=== PATIENT | female | born 1970 | race American Indian/Alaskan Native ===

== ENCOUNTER 2017-05-06 10:51 | Emergency (ER) | payer OTHER ==
--- NOTE | 2017-05-06 11:11 | Emergency Department Report ---
Chief Complaint: Chest Pain Stated Complaint: C/P STOMACH PAIN Time Seen by Provider: 05/06/17 11:11 - HPI History of Present Illness: Patient here reports that she is having mid to left chest pain and lower abdominal pain that started last week. She says she's been having low-grade fever with nausea and loss of appetite. Patient has a history of tubal ligation. She said her pain is crampy. Patient says she has a similar chest pain last weekend she was seen here last year and she does not have any heart problem. Patient denies having any medical problem except for surgical history of and fibroid removal along with bilateral tubal ligation. Her last period she said was last week which was 05/13/2017. Pain is 10 out of 10. She says she took some Tylenol but it didn't help. Denies any vaginal bleeding or discharge. She reports upper back pain without any injury. Patient denies any history of blood clot personally or in her family, she denies any history of control pills, denies any recent long distance travel by plane or car. Denies any swelling to her legs. - ROS Review of Systems: All systems are negative unless stated in HPI above - Exam Vital Signs: Vital Signs 05/06/17 11:04 Temperature 98.5 F Pulse Rate 111 H Respiratory 18 Rate Blood Pressure 143/87 O2 Sat by Pulse 99 Oximetry Physical Exam: This is a 46-year-old female that appears ill but nontoxic in appearance. Abdomen: Mild tenderness to palpate the lower abdominal quadrants, no guarding no rebound tenderness. Normal bowel sounds. Cardiovascular: Tachycardic at 111, regular rhythm. S1 and S2. Lungs: Clear to auscultation bilaterally, no rhonchi wheezes or rales MSE screening note: Focused history and physical exam performed. Due to findings the following was ordered:MDM screening ED Medical Decision Making - Medical Decision Making MDM: Patient screened by provider in triage area. Appropriate protocol initiated and patient to be seen in main ED by ED Disposition for MSE Condition: Stable
[2017-05-06 11:50] LABS: Basophils % (Auto) 0.8 % (0.0-1.8); Eosinophils % (Auto) 1.4 % (0.0-4.3); Hematocrit 41.9 % (30.3-42.9); Mean Corpuscular HGB Conc 33 % (30-34); Mean Corpuscular Hemoglobin 34 pg (28-32); Mean Corpuscular Volume 103 fl (79-97); Platelet Count 235 K/mm3 (140-440); Red Blood Count 4.09 M/mm3 (3.65-5.03); Red Cell Distribution Width 14.9 % (13.2-15.2); White Blood Count 4.9 K/mm3 (4.5-11.0)
[2017-05-06 12:00] LABS: INR 0.99 (0.87-1.13)
[2017-05-06 12:01] LABS: Partial Thromboplastin Time 26.7 Sec. (24.2-36.6)
[2017-05-06 12:27] LABS: Bilirubin,Urine NEG (Negative); Blood,Urine MOD (Negative); Ketones,Urine NEG (Negative); Leukocyte Esterase,Urine NEG (Negative); Mucus,Urine FEW /HPF; Nitrite,Urine NEG (Negative); Protein,Urine <15 mg/dL mg/dL (Negative); Urobilinogen,Urine < 2.0 mg/dL (<2.0)
[2017-05-06 12:48] LABS: Alanine Aminotransferase 19 units/L (7-56); Albumin 4.5 g/dL (3.9-5); Albumin/Globulin Ratio 1.3 %; Alkaline Phosphatase 53 units/L (35-129); Anion Gap 17 mmol/L; BUN/Creatinine Ratio 9; Blood Urea Nitrogen 7 mg/dL (7-17); Calcium 9.6 mg/dL (8.4-10.2); Carbon Dioxide 26 mmol/L (22-30); Chloride 101.1 mmol/L (98-107); Glucose 100 mg/dL (65-100); Lipase 19 units/L (13-60); Potassium 3.9 mmol/L (3.6-5.0); Sodium 140 mmol/L (137-145); Total Protein 7.9 g/dL (6.3-8.2)
[2017-05-06] MEDS ORDERED: REGLAN IV ONE (17:49)
[2017-05-06] MEDS ORDERED: NACL 0.9% 1000 ML 1,000 ML IV ONE (17:49)
--- NOTE | 2017-05-06 17:53 | Emergency Department Report ---
ED Abdominal Pain HPI - General Chief Complaint: Chest Pain Stated Complaint: C/P STOMACH PAIN Time Seen by Provider: 05/06/17 11:11 Source: patient Mode of arrival: Ambulatory Limitations: No Limitations - History of Present Illness Initial Comments: Patient is 46 years old female with no significant past medical history, she came today with a chief complaint ABDOMINAL PAIN NAUSEA VOMITING for the last 5 days, patient stated that she is not able to keep anything down. She denied diarrhea. No fever no other complaints. MD Complaint: abdominal pain -: days(s) Location: epigastric Migration to: no migration Severity scale (0 -10): 4 Quality: stabbing Consistency: intermittent Associated Symptoms: nausea, vomiting. denies: diarrhea, fever, chills, constipation - Related Data Home Medications Medication Instructions Recorded Confirmed Last Taken No Known Home Medications [No 05/06/17 05/06/17 Unknown Reported Home Medications] Allergies Allergy/AdvReac Type Severity Reaction Status Date / Time No Known Allergies Allergy Unverified 10/04/14 11:17 ED Review of Systems ROS: Stated complaint: C/P STOMACH PAIN Other details as noted in HPI Comment: All other systems reviewed and negative Constitutional: denies: chills, fever Respiratory: denies: cough, orthopnea, shortness of breath, SOB with exertion Cardiovascular: chest pain. denies: palpitations, dyspnea on exertion Gastrointestinal: abdominal pain, nausea, vomiting. denies: diarrhea, constipation, hematemesis Musculoskeletal: denies: back pain, joint swelling Neurological: denies: headache, weakness, numbness ED Past Medical Hx - Past Medical History Previous Medical History?: No - Surgical History Additional Surgical History: , fibroid removal - Social History Smoking Status: Never Smoker Substance Use Type: None - Medications Home Medications: Home Medications Medication Instructions Recorded Confirmed Last Taken Type No Known Home Medications [No 05/06/17 05/06/17 Unknown History Reported Home Medications] ED Physical Exam - General Limitations: No Limitations General appearance: alert - Head Head exam: Present: atraumatic, normocephalic - Eye Eye exam: Present: normal appearance Pupils: Present: normal accommodation - ENT ENT exam: Present: normal exam, normal orophraynx, TM's normal bilaterally - Neck Neck exam: Present: normal inspection - Respiratory Respiratory exam: Present: normal lung sounds bilaterally. Absent: respiratory distress, wheezes, rales, rhonchi, chest wall tenderness - Cardiovascular Cardiovascular Exam: Present: regular rate, normal rhythm, normal heart sounds - GI/Abdominal GI/Abdominal exam: Present: soft, normal bowel sounds. Absent: distended, guarding, rebound, rigid, mass, bruit, pulsatile mass, hernia - Extremities Exam Extremities exam: Present: normal inspection, full ROM, normal capillary refill. Absent: tenderness - Back Exam Back exam: Present: normal inspection. Absent: CVA tenderness (R), CVA tenderness (L) - Neurological Exam Neurological exam: Present: alert, oriented X3, CN II-XII intact, normal gait - Skin Skin exam: Present: warm, dry, normal color ED Course Vital Signs 05/06/17 05/06/17 05/06/17 11:04 15:09 16:04 Temperature 98.5 F 98.1 F Pulse Rate 111 H 94 H Respiratory 18 18 Rate Blood Pressure 143/87 Blood Pressure 139/81 [Right] O2 Sat by Pulse 99 100 97 Oximetry 05/06/17 05/06/17 05/06/17 16:15 16:31 17:00 Temperature Pulse Rate 84 76 Respiratory 17 14 Rate Blood Pressure 146/81 123/75 Blood Pressure [Right] O2 Sat by Pulse 99 100 99 Oximetry 05/06/17 18:00 Temperature Pulse Rate 83 Respiratory 13 Rate Blood Pressure 146/81 Blood Pressure [Right] O2 Sat by Pulse 98 Oximetry - Reevaluation(s) Reevaluation #1: 05/06/17 19:45 Patient stated that she is feeling much better her pain is almost resolved, no more vomiting. ED Medical Decision Making - Lab Data Result diagrams: 05/06/17 11:37 05/06/17 11:37 - Radiology Data Radiology results: image reviewed interpreted by me: Abdominal x-ray with chest x-ray, no acute finding, no evidence of bowel obstruction. Critical care attestation.: If time is entered above; I have spent that time in minutes in the direct care of this critically ill patient, excluding procedure time. ED Disposition Clinical Impression: Abdominal pain, Gastritis Disposition: DC-01 TO HOME OR SELFCARE Is pt being admited?: No Condition: Stable Instructions: Abdominal Pain (ED), Gastritis (ED) Referrals: PRIMARY CARE, [Primary Care Provider] - 3-5 Days
[2017-05-06] MEDS ORDERED: PROTONIX IV ONE (18:00)
[2017-05-06] MEDS ORDERED: TORADOL IV ONE (19:44)
[2017-05-06 20:11] VITALS: BP 112/72
--- NOTE | 2017-05-07 07:32 | XRay Report ---
Abdominal series: History: Abdominal pain. Findings: Normal cardiomediastinal silhouette normal lung parenchyma. No free intraperitoneal air. No bowel distention or wall thickening. No radiopaque calculus. There is calcific mass identified in the pelvis adjacent to the right ischial spine measuring 3.7 cm in diameter. Impression: No acute lung changes. No bowel distention. Calcified mass could be retained or outside the pelvis. If clinically indicated CT scan of pelvis may be recommended. No previous studies available for comparison.
== END 2017-05-06 20:10 | disposition home or self-care (01) ==
LOC: ED 10:51
DX: K29.70 Gastritis, unspecified, without bleeding (principal)
CPT/HCPCS: 36415; 74022; 80053; 81001; 83690; 84484; 84703; 85025; 85610; 85730; 93005; 93010; 96361; 96374; 96375; 99284; C9113; J1885; J2765; J7030

== ENCOUNTER 2021-06-07 18:36 | Emergency (ER) | payer SELFPAY ==
[2021-06-07 19:25] VITALS: BP 136/82
--- NOTE | 2021-06-07 23:28 | Cat Scan Report ---
CT HEAD WITHOUT CONTRAST INDICATION / CLINICAL INFORMATION: Headache. TECHNIQUE: All CT scans at this location are performed using CT dose reduction for ALARA by means of automated exposure control. COMPARISON: None available. FINDINGS: BRAIN PARENCHYMA: No acute intracranial hemorrhage. No evidence of recent infarct. No mass effect or midline shift. VENTRICULAR SYSTEM/EXTRA-AXIAL SPACES: Ventricles are normal for age. No extra-axial fluid collection . ORBITS: Normal as visualized. SKELETAL SYSTEM/SOFT TISSUES: Normal bones and soft tissues. PARANASAL SINUSES/MASTOID AIR CELLS: No significant abnormality. ADDITIONAL FINDINGS: None. IMPRESSION: 1. No acute intracranial abnormality. Signer Name: Micky Valles MD Signed: 06/07/2021 11:24 PM Workstation Name: [id number]
--- NOTE | 2021-06-08 | Emergency Department Report ---
ED Headache HPI - General Chief Complaint: Headache Stated Complaint: HAND IS SHAKING Time Seen by Provider: 06/07/21 21:36 - History of Present Illness Initial Comments: 50-year-old -[place] female with past medical history hypertension presents [facility] complaining of headache for the last 4 days associated with numbness and tingling to her hand off and on over the the last few hours today was prompted to come to [facility] department she reports no loss of vision but has experienced some dizziness and humming to the 80s. No nausea, no vomiting, no hemoptysis hematemesis hematochezia no neck stiffness no rashes no traumatic events to her knowledge Head Injury Location: frontal, occipital Recent Head Trauma: no recent headache/trauma Associated Symptoms: denies: facial pain, fever/chills, nausea/vomiting, nasal congestion, sinus infection, vision changes Allergies/Adverse Reactions: Allergies No Known Allergies Allergy (Verified 05/14/18 16:58) Home Medications: Ambulatory Orders Esomeprazole Magnesium [NexIUM] 40 mg PO QDAY #30 capsule. 05/06/17 Acyclovir [Zovirax] 400 mg PO 5XD 7 Days tablet 05/12/18 Famotidine [Pepcid] 20 mg PO BID #20 tablet 05/12/18 Ibuprofen [Motrin] 800 mg PO Q8HR PRN #30 tablet 05/12/18 Mineral Oil/Petrolatum,White [Lubrifresh Pm Eye Ointment] 1 strip OD QHS #1 bottle 05/12/18 Ondansetron [Zofran ODT TAB] 4 mg PO Q8HR PRN #20 tab.rapdis 05/12/18 Prednisone [predniSONE 10 mg (6-Day Pack, 21 Tabs)] 10 mg PO .TAPER #1 tab.ds.pk 05/12/18 traMADoL [Ultram 50 MG tab] 50 mg PO Q6HR PRN #20 tablet 05/12/18 Polyvinyl Alcohol/Povidone [Artificial Tears Drops 0.5/0.6 %] 1 - 2 drop OP PRN #1 bottle 05/14/18 Albuterol Mdi (or & Nicu Only) [ProAir HFA Inhaler] 1 puff IH Q4-6H PRN #1 inha 05/31/18 Azithromycin [Zithromax] 500 mg PO QDAY #5 tablet 05/31/18 guaiFENesin/CODEINE [Robitussin AC] 5 ml PO Q6H PRN #120 ml 05/31/18 Mag Carb/Aluminum Hydrox/Algin [Gaviscon Extra Strength Liquid] 355 ml PO ONCE #1 oral.susp 06/01/18 Ketorolac [Toradol] 10 mg PO Q6H PRN #10 tablet 06/08/21 ED Review of Systems ROS: Stated complaint: HAND IS SHAKING Other details as noted in HPI Comment: All other systems reviewed and negative ED Past Medical Hx - Past Medical History Previous Medical History?: Yes Additional medical history: jean baptiste's palsy hx - Surgical History Past Surgical History?: Yes Additional Surgical History: , fibroid removal - Social History Smoking Status: Never Smoker Substance Use Type: None - Medications Home Medications: Home Medications Medication Instructions Recorded Confirmed Last Taken Type Esomeprazole Magnesium [NexIUM] 40 mg PO QDAY #30 capsule. 05/06/17 Unknown Rx Acyclovir [Zovirax] 400 mg PO 5XD 7 Days tablet 05/12/18 Unknown Rx Famotidine [Pepcid] 20 mg PO BID #20 tablet 05/12/18 Unknown Rx Ibuprofen [Motrin] 800 mg PO Q8HR PRN #30 tablet 05/12/18 Unknown Rx Mineral Oil/Petrolatum,White 1 strip OD QHS #1 bottle 05/12/18 Unknown Rx [Lubrifresh Pm Eye Ointment] Ondansetron [Zofran ODT TAB] 4 mg PO Q8HR PRN #20 tab.rapdis 05/12/18 Unknown Rx Prednisone [predniSONE 10 mg 10 mg PO .TAPER #1 tab.ds.pk 05/12/18 Unknown Rx (6-Day Pack, 21 Tabs)] traMADoL [Ultram 50 MG tab] 50 mg PO Q6HR PRN #20 tablet 05/12/18 Unknown Rx Polyvinyl Alcohol/Povidone 1 - 2 drop OP PRN #1 bottle 05/14/18 Unknown Rx [Artificial Tears Drops 0.5/0.6 %] Albuterol Mdi (or & Nicu Only) 1 puff IH Q4-6H PRN #1 inha 05/31/18 Unknown Rx [ProAir HFA Inhaler] Azithromycin [Zithromax] 500 mg PO QDAY #5 tablet 05/31/18 Unknown Rx guaiFENesin/CODEINE [Robitussin AC] 5 ml PO Q6H PRN #120 ml 05/31/18 Unknown Rx Mag Carb/Aluminum Hydrox/Algin 355 ml PO ONCE #1 oral.susp 06/01/18 Unknown Rx [Gaviscon Extra Strength Liquid] Ketorolac [Toradol] 10 mg PO Q6H PRN #10 tablet 06/08/21 Unknown Rx ED Physical Exam - General Limitations: No Limitations General appearance: alert, in no apparent distress - Head Head exam: Present: atraumatic, normocephalic, normal inspection - Eye Eye exam: Present: normal appearance, PERRL Pupils: Present: normal accommodation - ENT ENT exam: Present: mucous membranes moist - Neck Neck exam: Present: normal inspection - Respiratory Respiratory exam: Present: normal lung sounds bilaterally. Absent: respiratory distress, wheezes, rales, rhonchi, accessory muscle use - Cardiovascular Cardiovascular Exam: Present: regular rate, normal rhythm. Absent: systolic murmur, diastolic murmur, rubs, gallop - GI/Abdominal GI/Abdominal exam: Present: soft, normal bowel sounds - Extremities Exam Extremities exam: Present: normal inspection, normal capillary refill - Back Exam Back exam: Present: normal inspection. Absent: CVA tenderness (R), CVA tenderness (L) - Neurological Exam Neurological exam: Present: alert, oriented X3, CN II-XII intact, normal gait - Psychiatric Psychiatric exam: Present: normal affect, normal mood - Skin Skin exam: Present: warm, dry, intact, normal color. Absent: rash, diaphoretic, erythema, petechiae, pallor ED Course Vital Signs 06/07/21 19:25 Temperature 97.6 F Pulse Rate 104 H Respiratory 18 Rate Blood Pressure 136/82 O2 Sat by Pulse 100 Oximetry ED Medical Decision Making - Radiology Data Radiology results: report reviewed [facility] [address] [place] [address] Cat Scan Report Signed Patient: JEREMY AUGUSTE MR#: [id number] : 1970 Acct:[id number] Age/Sex: 50 / F ADM Date: 06/07/21 Loc: ED Attending Dr: Ordering Physician: DAMARIS LYNN Date of Service: 06/07/21 Procedure(s): CT head/brain wo con Accession Number(s): [id number] cc: DAMARIS LYNN CT HEAD WITHOUT CONTRAST INDICATION / CLINICAL INFORMATION: Headache. TECHNIQUE: All CT scans at this location are performed using CT dose reduction for ALARA by means of automated exposure control. COMPARISON: None available. FINDINGS: BRAIN PARENCHYMA: No acute intracranial hemorrhage. No evidence of recent infarct. No mass effect or midline shift. VENTRICULAR SYSTEM/EXTRA-AXIAL SPACES: Ventricles are normal for age. No extra- axial fluid collection. ORBITS: Normal as visualized. SKELETAL SYSTEM/SOFT TISSUES: Normal bones and soft tissues. PARANASAL SINUSES/MASTOID AIR CELLS: No significant abnormality. ADDITIONAL FINDINGS: None. IMPRESSION: 1. No acute intracranial abnormality. Signer Name: Giuliano Valles MD Signed: 06/07/2021 11:24 PM Workstation Name: [id number] Transcribed By: VERONICA Dictated By: GIULIANO VALLES MD Electronically Authenticated By: GIULIANO VALLES MD Signed Date/Time: 06/07/212323 DD/ 22 TD/TT: - Medical Decision Making This patient presents with a headache most consistent with nonemergent cause. Differential diagnosis includes migraine versus tension type headache. No hea dache red flags. Neurologic exam without evidence of meningismus, focal neurologic findings.Based on the patient's history and physical there is very low clinical suspicion for significant intracranial pathology. The headache was NOT sudden onset, NOT maximal at onset, there are NO neurologic findings, the patient does NOT have a fever, the patient does NOT have any jaw claudication, the patient does NOT endorse a clotting disorder, patient DENIES any trauma or eye pain and the headache is NOT associated with dizziness or ataxia. Presentation not consistent with acute intracranial bleed to include SAH (lack of risk factors, headache history). Presentation not consistent with acute [employer] infection to include meningitis or brain abscess, Temporal arteritis unlikely, as is acute angle closure glaucoma given history and physical findings. Presentation not consistent with other acute, emergent causes of headache at this time. Plan to treat symptomatically with pain medication. No indication for imaging/LP at this time. Plan: pain medication, CT brain, serial reassessment Critical care attestation.: If time is entered above; I have spent that time in minutes in the direct care of this critically ill patient, excluding procedure time. ED Disposition Clinical Impression: Headache Disposition: 01 HOME / SELF CARE / HOMELESS Is pt being admited?: No Does the pt Need Aspirin: No Condition: Stable Instructions: General Headache Without Cause, Form - Headache Record, Acetaminophen; Aspirin, ASA; Caffeine oral powder Prescriptions: Ketorolac [Toradol] 10 mg PO Q6H PRN #10 tablet PRN Reason: Pain Referrals: CRYSTAL PEREZ MD [Primary Care Provider] - 3-5 Days
== END 2021-06-08 00:30 | disposition home or self-care (01) ==
LOC: ED 18:36
DX: R51.9 Headache, unspecified (principal); G51.0 Bell's palsy
CPT/HCPCS: 70450; 99283

== ENCOUNTER 2021-10-20 09:19 | Emergency (ER) | payer SELFPAY ==
[2021-10-20] MEDS ORDERED: KETOROLAC 10 MG TAB PO ONE (11:37)
[2021-10-20] MEDS ORDERED: DEXAMETHASONE 4 MG TAB PO ONE (11:37)
--- NOTE | 2021-10-20 12:40 | Emergency Department Report ---
ED Dizziness HPI - General Chief Complaint: Dizziness Stated Complaint: WEAKNESS Time Seen by Provider: 10/20/21 11:36 Source: EMS Mode of arrival: Stretcher Limitations: No Limitations - History of Present Illness Initial Comments: 51-year-old black female with a past medical history of hypertension presents to the ER for evaluation of dizziness. She states that she woke up this morning with dizziness that was worse with standing along with headache and runny nose. She denies shortness of breath, chest pain, nausea, vomiting, and cough. He states that headache is 9 out of 10. MD Complaint: dizziness -: Sudden, This morning Timing: sudden onset Description: off-balance History of Same: No History of Trauma: No Severity: moderate Worsens With: other (Standing) Associated Symptoms: denies: ataxia, chest pain, confusion, cough, diaphoresis, fever/chills, loss of appetite, malaise, rash, seizure, shortness of breath, syncope, weakness - Related Data Previous Rx's Medication Instructions Recorded Last Taken Type Esomeprazole Magnesium [NexIUM] 40 mg PO QDAY #30 capsule. 05/06/17 Unknown Rx Acyclovir [Zovirax] 400 mg PO 5XD 7 Days tablet 05/12/18 Unknown Rx Famotidine [Pepcid] 20 mg PO BID #20 tablet 05/12/18 Unknown Rx Ibuprofen [Motrin] 800 mg PO Q8HR PRN #30 tablet 05/12/18 Unknown Rx Mineral Oil/Petrolatum,White 1 strip OD QHS #1 bottle 05/12/18 Unknown Rx [Lubrifresh Pm Eye Ointment] Ondansetron [Zofran ODT TAB] 4 mg PO Q8HR PRN #20 tab.rapdis 05/12/18 Unknown Rx Prednisone [predniSONE 10 mg 10 mg PO .TAPER #1 tab.ds.pk 05/12/18 Unknown Rx (6-Day Pack, 21 Tabs)] traMADoL [Ultram 50 MG tab] 50 mg PO Q6HR PRN #20 tablet 05/12/18 Unknown Rx Polyvinyl Alcohol/Povidone 1 - 2 drop OP PRN #1 bottle 05/14/18 Unknown Rx [Artificial Tears Drops 0.5/0.6 %] Albuterol Mdi (or & Nicu Only) 1 puff IH Q4-6H PRN #1 inha 05/31/18 Unknown Rx [ProAir HFA Inhaler] Azithromycin [Zithromax] 500 mg PO QDAY #5 tablet 05/31/18 Unknown Rx guaiFENesin/CODEINE [Robitussin AC] 5 ml PO Q6H PRN #120 ml 05/31/18 Unknown Rx Mag Carb/Aluminum Hydrox/Algin 355 ml PO ONCE #1 oral.susp 06/01/18 Unknown Rx [Gaviscon Extra Strength Liquid] Ketorolac [Toradol] 10 mg PO Q6H PRN #10 tablet 06/08/21 Unknown Rx Levocetirizine Dihydrochloride 5 mg PO QPM #30 tab 10/20/21 Unknown Rx [Xyzal] methylPREDNISolone [Medrol 4MG 4 mg PO DAILY #1 pack 10/20/21 Unknown Rx DOSEPAK (21 tabs)] Allergies Allergy/AdvReac Type Severity Reaction Status Date / Time No Known Allergies Allergy Verified 05/14/18 16:58 ED Review of Systems ROS: Stated complaint: WEAKNESS Other details as noted in HPI Comment: All other systems reviewed and negative Constitutional: denies: chills, diaphoresis, fever, malaise, weakness Eyes: denies: eye pain ENT: congestion Respiratory: denies: cough, shortness of breath, SOB with exertion, SOB at rest, wheezing Cardiovascular: denies: chest pain, palpitations, dyspnea on exertion, orthopnea Gastrointestinal: abdominal pain. denies: nausea, vomiting Genitourinary: denies: urgency, dysuria, frequency, hematuria Musculoskeletal: denies: back pain, joint swelling Skin: denies: rash, lesions Neurological: headache. denies: weakness, numbness, paresthesias, confusion, abnormal gait ED Past Medical Hx - Past Medical History Previous Medical History?: Yes Hx Hypertension: Yes Additional medical history: jean baptiste's palsy hx - Surgical History Additional Surgical History: , fibroid removal - Social History Smoking Status: Never Smoker Substance Use Type: None - Medications Home Medications: Home Medications Medication Instructions Recorded Confirmed Last Taken Type Esomeprazole Magnesium [NexIUM] 40 mg PO QDAY #30 capsule. 05/06/17 Unknown Rx Acyclovir [Zovirax] 400 mg PO 5XD 7 Days tablet 05/12/18 Unknown Rx Famotidine [Pepcid] 20 mg PO BID #20 tablet 05/12/18 Unknown Rx Ibuprofen [Motrin] 800 mg PO Q8HR PRN #30 tablet 05/12/18 Unknown Rx Mineral Oil/Petrolatum,White 1 strip OD QHS #1 bottle 05/12/18 Unknown Rx [Lubrifresh Pm Eye Ointment] Ondansetron [Zofran ODT TAB] 4 mg PO Q8HR PRN #20 tab.rapdis 05/12/18 Unknown Rx Prednisone [predniSONE 10 mg 10 mg PO .TAPER #1 tab.ds.pk 05/12/18 Unknown Rx (6-Day Pack, 21 Tabs)] traMADoL [Ultram 50 MG tab] 50 mg PO Q6HR PRN #20 tablet 05/12/18 Unknown Rx Polyvinyl Alcohol/Povidone 1 - 2 drop OP PRN #1 bottle 05/14/18 Unknown Rx [Artificial Tears Drops 0.5/0.6 %] Albuterol Mdi (or & Nicu Only) 1 puff IH Q4-6H PRN #1 inha 05/31/18 Unknown Rx [ProAir HFA Inhaler] Azithromycin [Zithromax] 500 mg PO QDAY #5 tablet 05/31/18 Unknown Rx guaiFENesin/CODEINE [Robitussin AC] 5 ml PO Q6H PRN #120 ml 05/31/18 Unknown Rx Mag Carb/Aluminum Hydrox/Algin 355 ml PO ONCE #1 oral.susp 06/01/18 Unknown Rx [Gaviscon Extra Strength Liquid] Ketorolac [Toradol] 10 mg PO Q6H PRN #10 tablet 06/08/21 Unknown Rx Levocetirizine Dihydrochloride 5 mg PO QPM #30 tab 10/20/21 Unknown Rx [Xyzal] methylPREDNISolone [Medrol 4MG 4 mg PO DAILY #1 pack 10/20/21 Unknown Rx DOSEPAK (21 tabs)] ED Physical Exam - General Limitations: No Limitations General appearance: alert, in no apparent distress - Head Head exam: Present: atraumatic, normocephalic - Eye Eye exam: Present: normal appearance. Absent: conjunctival injection - ENT ENT exam: Absent: normal exam (Bilateral nasal mucosal edema and bilateral turbinate swelling), normal orophraynx (Erythema to posterior oropharynx) - Expanded ENT Exam Expanded Mouth exam: Present: normal external inspection Throat exam: Negative: normal inspection, tonsillar erythema, tonsillomegaly, tonsillar exudate, R peritonsillar mass, L peritonsillar mass - Neck Neck exam: Present: normal inspection. Absent: lymphadenopathy - Respiratory Respiratory exam: Present: normal lung sounds bilaterally. Absent: respiratory distress, wheezes, rales, rhonchi, stridor, chest wall tenderness - Cardiovascular Cardiovascular Exam: Present: regular rate, normal heart sounds - GI/Abdominal GI/Abdominal exam: Present: soft, normal bowel sounds. Absent: distended, tenderness, guarding, rebound, rigid - Extremities Exam Extremities exam: Present: normal inspection, normal capillary refill. Absent: tenderness, pedal edema, joint swelling, calf tenderness - Back Exam Back exam: Present: normal inspection. Absent: CVA tenderness (R), CVA tenderness (L), vertebral tenderness - Neurological Exam Neurological exam: Present: alert, oriented X3, normal gait - Expanded Neurological Exam Expanded Patient oriented to: Present: person, place, time Speech: Present: fluid speech Cranial nerves: EOM's Intact: Normal, Gag Reflex: Normal, Tongue Deviation: Normal, Nystagmus: Normal, Facial Sensation: Normal Ataxia: Absent: yes Cerebellar function: Finger to Nose: Normal, Heel to Huggins: Normal, Romberg: Normal Sensory exam: Upper Extremity Light Touch: Normal, Lower Extremity Light Touch: Normal Motor strength exam: RUE: 5, LUE: 5, RLE: 5, LLE: 5 Best Eye Response (Gracey): (4) open spontaneously Best Motor Response (Gracey): (6) obeys commands Best Verbal Response (Gracey): (5) oriented Hannah Total: 15 - Psychiatric Psychiatric exam: Present: normal affect, normal mood - Skin Skin exam: Present: warm, dry, intact, normal color ED Course Vital Signs 10/20/21 10/20/21 09:42 12:56 Temperature 98.0 F 98.8 F Pulse Rate 92 H 73 Respiratory 18 18 Rate Blood Pressure 118/65 124/89 [Right] O2 Sat by Pulse 99 99 Oximetry - Reevaluation(s) Reevaluation #1: 10/20/21 12:39 Headache and dizziness mostly resolved, and patient states that she feels much better. ED Medical Decision Making - Medical Decision Making 51-year-old black female with a past medical history of hypertension presents to the ER for evaluation of dizziness. She states that she woke up this morning with dizziness that was worse with standing along with headache and runny nose. She denies shortness of breath, chest pain, nausea, vomiting, and cough. He states that headache is 9 out of 10. No neurologic deficits noted, and exam consistent with sinusitis. Symptoms relieved with medication, and patient ambulatory in hallway without a problem. She will be treated with steroid Dosepak and encouraged to start [id number] Xyzal for sinuses. She is advised to take medication as prescribed and follow-up with her primary care provider if worsening symptoms. She verbalizes understanding of and agreement with plan of care. Critical care attestation.: If time is entered above; I have spent that time in minutes in the direct care of this critically ill patient, excluding procedure time. ED Disposition Clinical Impression: Sinusitis Qualifiers: Sinusitis location: frontal Chronicity: acute Recurrence: non-recurrent Qualified Code(s): J01.10 - Acute frontal sinusitis, unspecified Disposition: 01 HOME / SELF CARE / HOMELESS Is pt being admited?: No Does the pt Need Aspirin: No Condition: Stable Instructions: Sinusitis, Adult, [id number], How to Perform a Sinus Rinse, [id number] Additional Instructions: Take medications as prescribed. Follow-up with primary care provider if worsening symptoms. Return to the emergency department as needed. Prescriptions: methylPREDNISolone [Medrol 4MG DOSEPAK (21 tabs)] 4 mg PO DAILY #1 pack Levocetirizine Dihydrochloride [Xyzal] 5 mg PO QPM #30 tab Referrals: UMAIR GONZALEZ MD [Staff Physician] - 3-5 Days Forms: Work/School Release Form(ED) Time of Disposition: 12:39
[2021-10-20 12:57] VITALS: BP 124/89
== END 2021-10-20 12:57 | disposition home or self-care (01) ==
LOC: ED 09:19
DX: J01.90 Acute sinusitis, unspecified (principal); I10 Essential (primary) hypertension
CPT/HCPCS: 99283; J8540